=== PATIENT | male | born 1995 | race Caucasian/White ===

== ENCOUNTER 2017-11-28 13:57 | Emergency (ER) | payer OTHER ==
[2017-11-28] MEDS: dexameTHASONE 4 MG/ML 1ML VIAL (J1100) PO (14:51)
== END 2017-11-28 14:56 | disposition home or self-care (01) ==
LOC: M ED 13:57
DX: J02.0 Streptococcal pharyngitis (principal)
CPT/HCPCS: J1100

== ENCOUNTER 2018-01-02 05:59 | Emergency (ER) | payer OTHER ==
[2018-01-02] MEDS: ACETAMINOPHEN 325 MG TAB PO (08:11)
== END 2018-01-02 08:49 | disposition home or self-care (01) ==
LOC: M ED 05:59
DX: S01.81XA Laceration without foreign body of other part of head, initial encounter (principal); Y04.8XXA Assault by other bodily force, initial encounter; Y92.9 Unspecified place or not applicable; Y93.9 Activity, unspecified; Y99.9 Unspecified external cause status; Z72.0 Tobacco use
CPT/HCPCS: 70486

== ENCOUNTER 2018-04-21 10:44 | Emergency (ER) | payer OTHER ==
[~2018-04-21] VITALS: Ht 172.7 cm; Wt 77.3 kg
[~2018-04-21 10:44] MED LIST: MAGICMW SSP; PENI250REC PO; VALT500T PO
[2018-04-21 10:45] VITALS: BP 123/71
== END 2018-04-21 11:25 | disposition home or self-care (01) ==
LOC: M ED 10:44
DX: J02.9 Acute pharyngitis, unspecified (principal)

== ENCOUNTER 2018-05-11 08:41 | Emergency (ER) | payer OTHER ==
[~2018-05-11] VITALS: Ht 172.7 cm; Wt 77.3 kg
[2018-05-11 08:42] VITALS: BP 123/69
[2018-05-11] MEDS ORDERED: FLUORESCEIN OPHTH 1 MG STRIP OU ONE (09:30)
[2018-05-11] MEDS ORDERED: TETRACAINE 0.5% OPHTH SOLN 4ML OU ONE (09:30)
[2018-05-11] MEDS ORDERED: CIPR0.3S OS (09:49)
== END 2018-05-11 09:57 | disposition home or self-care (01) ==
LOC: M ED 08:41
DX: S05.02XA Injury of conjunctiva and corneal abrasion without foreign body, left eye, initial encounter (principal); Z97.3 Presence of spectacles and contact lenses

== ENCOUNTER 2018-07-10 15:37 | Emergency (ER) | payer OTHER ==
[~2018-07-10] VITALS: Ht 172.7 cm; Wt 77.3 kg
[2018-07-10 15:37] VITALS: BP 135/78
[~2018-07-10 15:37] MED LIST changes: +CIPR0.3S OS
[2018-07-10] MEDS ORDERED: KEFL500C17 PO (16:41)
[2018-07-10] MEDS ORDERED: NEOSPORIN OINT 0.9 GM PKT (FLOOR STOCK) TOP ONE (16:45)
--- NOTE | 2018-07-10 16:58 | REP ---
Right elbow for views : There is no fracture or dislocation. Mineralization and joint spaces are normal. There are no calcifications or foreign bodies. Impression: Negative right elbow . Electronically Signed by August Soriano MD 07/10/2018 04:50 P
== END 2018-07-10 16:48 | disposition home or self-care (01) ==
LOC: M ED 15:37
DX: S50.312A Abrasion of left elbow, initial encounter (principal); W01.0XXA Fall on same level from slipping, tripping and stumbling without subsequent striking against object, initial encounter; Y92.410 Unspecified street and highway as the place of occurrence of the external cause; F17.200 Nicotine dependence, unspecified, uncomplicated; B00.9 Herpesviral infection, unspecified; Z79.899 Other long term (current) drug therapy

== ENCOUNTER 2018-07-30 18:51 | Emergency (ER) | payer OTHER ==
[~2018-07-30] VITALS: Ht 172.7 cm; Wt 77.3 kg
[~2018-07-30 18:51] MED LIST changes: +KEFL500C17 PO
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
[2018-07-30 20:37] VITALS: BP 134/79
[2018-07-30] MEDS ORDERED: BACT800T5 PO (20:37)
[2018-07-30] MEDS ORDERED: IBUP1TAB6 PO (20:37)
[2018-07-30] MEDS ORDERED: BACTRIM 160MG/800MG DS TAB PO ONE (20:45)
[2018-07-30] MEDS ORDERED: IBUPROFEN 600 MG TAB PO ONE (20:45)
== END 2018-07-30 20:45 | disposition home or self-care (01) ==
LOC: M ED 18:51
DX: M70.21 Olecranon bursitis, right elbow (principal); V48.5XXA Car driver injured in noncollision transport accident in traffic accident, initial encounter; Y92.410 Unspecified street and highway as the place of occurrence of the external cause; Y93.9 Activity, unspecified; Y99.9 Unspecified external cause status; Z86.19 Personal history of other infectious and parasitic diseases; Z72.0 Tobacco use; Z79.899 Other long term (current) drug therapy

== ENCOUNTER 2018-09-03 04:51 | Emergency (ER) | payer OTHER ==
[~2018-09-03 04:51] MED LIST changes: +BACT800T5 PO; +IBUP1TAB6 PO
[2018-09-03 07:55] VITALS: BP 112/67
== END 2018-09-03 07:58 | disposition home or self-care (01) ==
LOC: M ED 04:51
DX: F10.120 Alcohol abuse with intoxication, uncomplicated (principal); F17.200 Nicotine dependence, unspecified, uncomplicated

== ENCOUNTER 2019-01-13 12:06 | Emergency (ER) | payer OTHER ==
[~2019-01-13] VITALS: Ht 172.7 cm; Wt 80.5 kg
[2019-01-13 12:06] VITALS: BP 127/80
[2019-01-13] MEDS ORDERED: ESCI20TA (12:11)
[2019-01-13] MEDS ORDERED: WELLTAB40 (12:11)
[2019-01-13] MEDS ORDERED: OMEP-221 (12:11)
[2019-01-13] MEDS ORDERED: dexameTHASONE 20 MG/5 ML VIAL (J1100) IM ONE (13:45)
== END 2019-01-13 14:17 | disposition home or self-care (01) ==
LOC: M ED 12:06
DX: J02.8 Acute pharyngitis due to other specified organisms (principal); Z79.899 Other long term (current) drug therapy
CPT/HCPCS: 87880; 96372; 99284; J1100

== ENCOUNTER 2019-02-22 21:48 | Emergency (ER) | payer OTHER ==
[~2019-02-22] VITALS: Ht 177.8 cm; Wt 87.2 kg
[~2019-02-22 21:48] MED LIST changes: +ESCI20TA; +OMEP-221; +WELLTAB40
[2019-02-22] MEDS ORDERED: NS 1,000 ML IV ONE (22:00)
[2019-02-22] MEDS ORDERED: ISOVUE-370 76% 100ML VIAL (Q9967) As Ordered ONE (22:14)
[2019-02-22 22:19] LABS: BASO # 0.1 10^3/uL (0.0-0.2); BASO % 0.7 % (0.0-1.0); EOS # 0.4 10^3/uL (0.0-0.5); EOS % 4.1 % (0.0-3.0); HEMATOCRIT 44.5 % (42.0-52.0); LYMPH # 2.5 10^3/uL (1.5-5.0); MEAN CORPUSCULAR HEMOGLOBIN 32.7 pg (27.0-33.0); MONO # 0.7 10^3/uL (0.0-0.8); MONO % 6.4 % (0.0-5.0); NEUTROPHILS # 6.6 10^3/uL (1.5-8.5); NEUTROPHILS % 64.5 % (36.0-66.0); PLATELET COUNT, AUTOMATED 261 10^3/uL (150-450); RED BLOOD COUNT 4.89 10^6/uL (4.30-6.10); WHITE BLOOD COUNT 10.2 10^3/uL (4.0-10.0)
[2019-02-22 22:31] LABS: INR 1.03; PROTHROMBIN TIME 13.2 SECONDS (11.8-14.0)
[2019-02-22 22:49] LABS: ALBUMIN 3.8 GM/DL (3.2-5.2); ALT/SGPT 28 U/L (12-78); AMYLASE 31 U/L (25-115); BILIRUBIN,DIRECT < 0.1 MG/DL (0.0-0.2); BILIRUBIN,TOTAL 0.4 MG/DL (0.2-1.0); BLOOD UREA NITROGEN 8 MG/DL (7-18); CALCIUM LEVEL 8.4 MG/DL (8.5-10.1); CARBON DIOXIDE LEVEL 28 MEQ/L (21-32); CHLORIDE LEVEL 107 MEQ/L (98-107); CK-MB VALUE MASS 2.4 NG/ML (<3.6); CPK CREATINE PHOSPHOKINASE 231 U/L (39-308); CREATININE FOR GFR 1.03 MG/DL (0.70-1.30); GLOMERULAR FILTRATION RATE > 60.0 (>60); GLUCOSE, FASTING 102 MG/DL (70-100); LIPASE 207 U/L (73-393); MB/CK RELATIVE INDEX 1.04 (< OR =4); POTASSIUM SERUM 3.4 MEQ/L (3.5-5.1); SODIUM LEVEL 143 MEQ/L (136-145); TOTAL PROTEIN 7.1 GM/DL (6.4-8.2); TROPONIN I < 0.02 NG/ML (< 0.10)
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
[2019-02-22 22:59] LABS: AMPHETAMINES LEVEL URINE NEGATIVE (NEGATIVE); BARBITURATES URINE NEGATIVE (NEGATIVE); BENZODIAZEPINES URINE NEGATIVE (NEGATIVE); CANNABINOIDS URINE NEGATIVE (NEGATIVE); COCAINE METABOLITE URINE NEGATIVE (NEGATIVE); METHADONE URINE NEGATIVE (NEGATIVE); OPIATES URINE NEGATIVE (NEGATIVE); PHENCYCLIDINE URINE NEGATIVE (NEGATIVE)
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
[2019-02-23 03:30] VITALS: BP 114/71
== END 2019-02-23 04:07 | disposition home or self-care (01) ==
LOC: M ED 21:48
DX: S27.329A Contusion of lung, unspecified, initial encounter (principal); V49.49XA Driver injured in collision with other motor vehicles in traffic accident, initial encounter; Y92.410 Unspecified street and highway as the place of occurrence of the external cause; F10.229 Alcohol dependence with intoxication, unspecified; Y90.1 Blood alcohol level of 20-39 mg/100 ml; Z79.899 Other long term (current) drug therapy
CPT/HCPCS: 70450; 70486; 71045; 71260; 72125; 72128; 72131; 74177; 80048; 80076; 80307; 81001; 82150; 82550; 82553; 83605; 83690; 84484; 85025; 85610; 85730; 86850; 86900; 86901; 93041; 94760; 96360; 96361; 99291; G0480; Q9967